=== PATIENT | female | born 1975 | race African-American/Black ===

== ENCOUNTER 2023-02-22 19:22 | Emergency (ER) | payer OTHER, SELFPAY ==
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
[2023-02-22 19:27] VITALS: BP 172/106; PULSE 89; RESP 18; TEMP 37.1; O2SAT 98
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
[2023-02-22] MEDS: IBUPROFEN 600 MG TABLET PO (20:08)
--- NOTE | 2023-02-22 20:57 | PC.NURSE ---
Notified Dr. Lindsey that imaging reports have resulted and asked him to see pt. Dr. Lindsey states he will be in as soon as he can. Updated pt.
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
[2023-02-22] MEDS: HYDROcodone/acetaminophen (*CRX) 5-325 MG TABLET 1 TAB PO (21:30)
[2023-02-22 21:32] VITALS: BP 150/90; PULSE 78; RESP 18; O2SAT 99
== END 2023-02-22 21:33 | disposition home or self-care (01) ==
PROVIDERS: Emergency Provider Emergency Medicine; PCP Physician Assistant
DX: S39.92XA Unspecified injury of lower back, initial encounter (principal); V43.52XA Car driver injured in collision with other type car in traffic accident, initial encounter
CPT/HCPCS: 72100; 72125; 99284; A9270

== ENCOUNTER 2023-08-20 10:02 | Outpatient (CLI) | payer OTHER, SELFPAY ==
--- NOTE | ~2023-08-20 | MM_ITS ---
EXAMINATION: MM screening braulio BI w claire HISTORY: Screening mammogram TECHNIQUE: Craniocaudal and mediolateral oblique 3-D tomosynthesis images were obtained and synthetic 2-D images were generated. CAD analysis was submitted and interpreted. COMPARISON: No prior mammogram is available for comparison at this institution. BREAST PARENCHYMAL COMPOSITION: There are scattered areas of fibroglandular density. FINDINGS: There is mild benign appearing asymmetry. There is no evidence of suspicious mass, calcific ation, or architectural distortion to suggest malignancy in either breast. There has been no suspicio us interval change. IMPRESSION: 1. No mammographic evidence of malignancy. 2. Recommend routine screening mammography in one year. BI-RADS Category 2: Benign finding(s). Reviewed, dictated and finalized at location A. STANT TO THE PRESIDENT
== END 2023-08-20 10:03 | disposition home or self-care (01) ==
PROVIDERS: PCP Physician Assistant; Visit Provider Physician Assistant
DX: Z12.31 Encounter for screening mammogram for malignant neoplasm of breast (principal)
CPT/HCPCS: 77063; 77067